=== PATIENT | female | born 1970 | race Caucasian/White ===

== ENCOUNTER 2021-05-19 13:56 | Emergency (ER) | payer SELFPAY ==
[~2021-05-19] VITALS: Ht 157.5 cm; Wt 78.2 kg
[2021-05-19 13:57] VITALS: BP 187/122
--- NOTE | 2021-05-19 14:06 | NUR ---
PT ASSISTED TO BED 7.
[2021-05-19] MEDS ORDERED: DICYCLOMINE HCL LIQUID 10 MG/5 ML UDC ONE (14:19)
[2021-05-19] MEDS ORDERED: ALUMINUM HYD/MAG/SIMETHICONE 30 ML UDC ONE (14:19)
[2021-05-19] MEDS ORDERED: DICYCLOMINE HCL LIQUID 20 MG, ALUMINUM HYD/MAG/SIMETHICONE 30 ML, LIDOCAINE VISCOUS 2% ... PO ONE ×3 (14:20)
[2021-05-19 15:09] LABS: BASOPHILS % (AUTO) 0.2 % (0.0-2.0); EOSINOPHILS # (AUTO) 0.1 K/uL (0-0.4); EOSINOPHILS % (AUTO) 0.5 % (0.0-4.0); HEMATOCRIT 48.4 % (36-48); HEMOGLOBIN 16.6 g/dL (12.0-16.0); LYMPHOCYTES # (AUTO) 1.8 K/uL (2.5-16.5); LYMPHOCYTES % (AUTO) 13.1 % (20.5-51.1); MEAN CORPUSCULAR HEMOGLOBIN 31 pg (27-31); MEAN CORPUSCULAR HGB CONC 34 g/dL (33-37); MEAN CORPUSCULAR VOLUME 89.9 fL (80-94); MONOCYTES # (AUTO) 0.8 K/uL (0.8-1.0); NEUTROPHILS # (AUTO) 11.1 K/uL (1.8-7.7); NEUTROPHILS % (AUTO) 80.2 % (42.2-75.2); PLATELET COUNT (AUTO) 304 K/uL (140-450); RED BLOOD CELL COUNT(AUTO) 5.38 MIL/uL (4.20-5.40); WHITE BLOOD COUNT (AUTO) 13.8 K/uL (4.8-10.8)
--- NOTE | 2021-05-19 15:11 | NUR ---
50/F BIB SELF WITH C/O EPIGASTRIC PAIN X4 DAYS. PATIENT STATES PAIN HAS BEEN INTERMITTENT AND NONRADIATING, PATIENT ALSO REPORTS INTERMITTENT EPISODES OF NAUSEA AND VOMITING, STATING IT WAS CAUSING A "BURNING" SENSATION IN HER CHEST. REPORTS TAKING TYLENOL WITH NO RELIEF. DENIES SOB, FEVER, CHILLS, OR URINARY SYMPTOMS.
[2021-05-19 15:44] LABS: ALBUMIN 3.9 g/dL (3.4-5.0); ANION GAP 12.7 (8-16); CARBON DIOXIDE 26.9 mmol/L (21-32); CREATININE 0.9 mg/dL (0.6-1.3); POTASSIUM 3.6 mmol/L (3.5-5.1); TOTAL BILIRUBIN 0.8 mg/dL (0.0-1.0)
[2021-05-19] MEDS ORDERED: OMEP20EC11 PO (16:14)
[2021-05-19] MEDS ORDERED: SUCR1TAB35 PO (16:14)
[2021-05-19 16:26] VITALS: BP 180/110
--- NOTE | 2021-05-19 16:26 | NUR ---
Patient discharged with v/s stable. Written and verbal after care instructions given and explained. Patient alert, oriented and verbalized understanding of instructions. Ambulatory with steady gait. All questions addressed prior to discharge. ID band removed. Patient advised to follow up with PMD. Rx of OMEPRAZOLE AND SUCRALFATE given. Patient educated on indication of medication including possible reaction and side effects. Opportunity to ask questions provided and answered.
== END 2021-05-19 16:26 | disposition home or self-care (01) ==
LOC: MED 13:56
DX: R10.13 Epigastric pain (principal); R11.10 Vomiting, unspecified; F15.90 Other stimulant use, unspecified, uncomplicated; Z79.899 Other long term (current) drug therapy
CPT/HCPCS: 36415; 80053; 83690; 84484; 84702; 85025; 93005; 99283; 99284